=== PATIENT | female | born 1970 | race Caucasian/White ===

== ENCOUNTER → 2018-02-15 | Outpatient (CLI) | payer OTHER ==
[~2018-02-15] MED LIST: AMOX500 PO; B/P MED; CLON2 PO; DULO60 PO; FLUC150A PO; GLYB5 PO; HYDACE5 PO; HYDACE5325 PO; Humalog100 UNIT/1; INSLI100I SC; INSUASPI SC; INSUASPI SUBQ; INSULANI SC; INSULANI SQ; INSULANI SUBQ; INSULANPEN; LISI20 PO; LORA1 PO; MAGCIT300 PO; METF500 PO; ONDA4ODT MM; OXYACE5T PO; OXYC5 PO; POLY17UD PO; RXCLIN PO; RXTRAM50 PO; SULTRIDS PO; VITAMIN D
[2018-02-15 12:53] LABS: BASOPHILS ABSOLUTE AUTO 0.09 K/mm3 (0.00-0.23); BASOPHILS PERCENT AUTO 1 % (0-2); EOSINOPHILS ABSOLUTE AUTO 0.09 K/mm3 (0.00-0.68); EOSINOPHILS PERCENT AUTO 1 % (0-6); Hematocrit 34.7 % (33.0-51.0); Hemoglobin 11.1 g/dL (11.5-16.0); IMMATURE GRAN ABSOLUTE AUTO 0.01 K/mm3 (0.00-0.10); IMMATURE GRAN PERCENT AUTO 0 % (0-1); LYMPHOCYTES ABSOLUTE AUTO 2.25 K/mm3 (0.84-5.20); LYMPHOCYTES PERCENT AUTO 36 % (21-46); MONOCYTES ABSOLUTE AUTO 0.67 K/mm3 (0.16-1.47); MONOCYTES PERCENT AUTO 11 % (4-13); Mean Corpuscular Volume 75 fL (80-100); Mean Platelet Volume 8.8 fL (9.1-12.4); NEUTROPHILS ABSOLUTE AUTO 3.16 K/mm3 (1.96-9.15); NEUTROPHILS PERCENT AUTO 50 % (41-73); Platelet Count 390 K/mm3 (150-400); RDW Coefficient Variation 16.8 % (11.7-14.2); RDW Standard Deviation 45.2 fL (35.1-46.3); Red Blood Cell Count 4.63 M/mm3 (3.80-5.20); White Blood Cell Count 6.27 K/mm3 (4.00-11.30)
[2018-02-15 13:05] LABS: Anion Gap 4 mmol/L (6-16); Blood Urea Nitrogen 12 mg/dL (8-24); Bun/Creatinine Ratio 21.4 (12.0-20.0); CO2, Blood 39 mmol/L (21-32); Chloride, Blood 102 mmol/L (98-108); Creatinine, Blood 0.56 mg/dL (0.40-1.00); Glomerular Filtration Rate >60 (60-); Glucose, Blood 217 mg/dL (70-99); Potassium, Blood 3.1 mmol/L (3.5-5.5); Sodium, Blood 145 mmol/L (136-145)
[2018-02-15 13:07] LABS: Troponin I <0.017 ng/mL (0.000-0.040)
== END | disposition home or self-care (01) ==
LOC: LAB EV 12:49 → LAB SHORT 12:49
PROVIDERS: Family Medicine
DX: Z53.9 Procedure and treatment not carried out, unspecified reason (principal)
CPT/HCPCS: 80048; 84484; 85025

== ENCOUNTER → 2018-04-23 | Outpatient (CLI) | payer OTHER ==
[2018-04-23 19:37] LABS: BASOPHILS ABSOLUTE AUTO 0.11 K/mm3 (0.00-0.23); BASOPHILS PERCENT AUTO 2 % (0-2); EOSINOPHILS ABSOLUTE AUTO 0.15 K/mm3 (0.00-0.68); EOSINOPHILS PERCENT AUTO 3 % (0-6); Hematocrit 33.3 % (33.0-51.0); Hemoglobin 10.3 g/dL (11.5-16.0); IMMATURE GRAN ABSOLUTE AUTO 0.01 K/mm3 (0.00-0.10); IMMATURE GRAN PERCENT AUTO 0 % (0-1); LYMPHOCYTES ABSOLUTE AUTO 2.17 K/mm3 (0.84-5.20); LYMPHOCYTES PERCENT AUTO 38 % (21-46); MONOCYTES PERCENT AUTO 11 % (4-13); Mean Corpuscular HGB Conc 30.9 g/dL (31.5-36.5); Mean Corpuscular Volume 75 fL (80-100); Mean Platelet Volume 9.5 fL (9.1-12.4); NEUTROPHILS ABSOLUTE AUTO 2.68 K/mm3 (1.96-9.15); NEUTROPHILS PERCENT AUTO 47 % (41-73); Platelet Count 394 K/mm3 (150-400); RDW Coefficient Variation 17.9 % (11.7-14.2); RDW Standard Deviation 47.7 fL (35.1-46.3); Red Blood Cell Count 4.47 M/mm3 (3.80-5.20); White Blood Cell Count 5.72 K/mm3 (4.00-11.30)
[2018-04-23 19:55] LABS: Alanine Aminotransfer (ALT/SGP 21 U/L (12-78); Albumin, Blood 3.2 g/dL (3.4-5.0); Alk Phos 86 U/L (40-126); Anion Gap 6 mmol/L (6-16); Aspartate Aminotrans (AST/SGOT 16 U/L (12-37); Bilirubin, Total 0.3 mg/dL (0.1-1.0); Blood Urea Nitrogen 15 mg/dL (8-24); Bun/Creatinine Ratio 21.4 (12.0-20.0); CO2, Blood 26 mmol/L (21-32); Calcium, Blood 8.5 mg/dL (8.5-10.1); Chloride, Blood 103 mmol/L (98-108); Globulin, Blood 3.1 g/dL (2.2-4.0); Glomerular Filtration Rate >60 (60-); Glucose, Blood 413 mg/dL (70-99); Potassium, Blood 3.8 mmol/L (3.5-5.5); Sodium, Blood 135 mmol/L (136-145); Thyroid Stimulating Hormone 1.057 uIU/mL (0.360-4.800); Total Protein, Blood 6.3 g/dL (6.4-8.2)
== END | disposition home or self-care (01) ==
LOC: LAB EV 19:30 → LAB SHORT 19:30
PROVIDERS: Physician Assistant Medical
DX: R10.84 Generalized abdominal pain (principal); R53.83 Other fatigue; R60.9 Edema, unspecified; E10.9 Type 1 diabetes mellitus without complications
CPT/HCPCS: 80053; 83036; 83880; 84443; 85025

== ENCOUNTER 2018-10-10 00:54 | Emergency (ER) | payer OTHER ==
[~2018-10-10] VITALS: Ht 175.3 cm; Wt 78.9 kg
[2018-10-10] MEDS ORDERED: Humalog100 UNIT/3 SC (02:24)
[2018-10-10 02:25] LABS: Calcium, Ionized (POC) 1.15 mmol/L (1.10-1.46); Chloride (POC) 100 mmol/L (98-108); Creatinine (POC) 0.5 mg/dL (0.6-1.0); Glucose (ISTAT POC) 336 mg/dL (70-99); Hemoglobin (POC) 11.2 g/dL (12.0-16.0); Sodium (POC) 135 mmol/L (135-148); Total CO2 (POC) 26 mmol/L (21-32)
== END 2018-10-10 02:30 | disposition home or self-care (01) ==
LOC: ER 00:54
PROVIDERS: Emergency Medicine
DX: E11.65 Type 2 diabetes mellitus with hyperglycemia (principal); F17.200 Nicotine dependence, unspecified, uncomplicated; Z79.4 Long term (current) use of insulin
CPT/HCPCS: 80047; 85014; 99283

== ENCOUNTER 2018-12-06 07:51 | Day surgery (SDC) | payer OTHER ==
[~2018-12-06] VITALS: Ht 172.7 cm; Wt 80.2 kg
[~2018-12-06 07:51] MED LIST changes: +ASPI81CH PO; +BASAGLAR K100 UNIT/1 SC; +Humalog100 UNIT/3 SC; +LISI5 PO
--- NOTE | 2018-12-06 09:20 | NUR ---
12/06/18 0920 Ahmet Baum PATIENT DETERMINED TO BE ASA APPROPRIATE FOR PROPOFOL SEDATION PRIOR TO START OF PROCEDURE BY . 3-LEAD EKG REVIEWED WITH PHYSICIAN PRIOR TO START OF PROCEDURE.PATIENT CONFIRMS NPO STATUS AND AGREES WITH SCHEDULED PROCEDURE.History, Chart, Medications and Allergies reviewed before start of procedure.MONITOR INTACT WITH CONTINUOUS PULSE OXIMETRY AND INTERMITTENT BP.O2 VIA N/C INTACT THROUGHOUT SEDATION/PROCEDURE.
--- NOTE | 2018-12-06 10:11 | NUR ---
"DAY SURGERY RN | DISCHARGE Patient steady on feet. VSS. A/O. No issues in stepdown. Tolerating PO fluids. Patient taken to car ( is driving home), via wheel chair by volunteer. All belonings returned to patient and discharge instructions given, no questions."
== END 2018-12-06 12:00 | disposition home or self-care (01) ==
LOC: ORSCMMR 07:51
PROVIDERS: Internal Medicine Gastroenterology
PROC: 0DBM8ZX Excision of Descending Colon, Via Natural or Artificial Opening Endoscopic, Diagnostic (ICD-10-PCS; principal; 2018-12-06 09:00)
DX: Z12.11 Encounter for screening for malignant neoplasm of colon (principal); Z80.0 Family history of malignant neoplasm of digestive organs; K63.5 Polyp of colon; E10.9 Type 1 diabetes mellitus without complications; Z79.4 Long term (current) use of insulin; Z79.899 Other long term (current) drug therapy; Z79.82 Long term (current) use of aspirin; F17.210 Nicotine dependence, cigarettes, uncomplicated
CPT/HCPCS: 82947; 84703; 88305; J7120

== ENCOUNTER → 2019-01-16 | Outpatient (CLI) | payer OTHER ==
[2019-01-16 17:56] LABS: Alanine Aminotransfer (ALT/SGP 22 U/L (12-78); Albumin, Blood 3.4 g/dL (3.4-5.0); Alk Phos 97 U/L (40-126); Anion Gap 7 mmol/L (6-16); Aspartate Aminotrans (AST/SGOT 20 U/L (12-37); Bilirubin, Total 0.2 mg/dL (0.1-1.0); Blood Urea Nitrogen 9 mg/dL (8-24); Bun/Creatinine Ratio 14.3 (12.0-20.0); CO2, Blood 26 mmol/L (21-32); Calcium, Blood 8.2 mg/dL (8.5-10.1); Chloride, Blood 100 mmol/L (98-108); Creatinine, Blood 0.63 mg/dL (0.40-1.00); Globulin, Blood 3.4 g/dL (2.2-4.0); Glomerular Filtration Rate >60 (60-); Glucose, Blood 344 mg/dL (70-99); Potassium, Blood 4.6 mmol/L (3.5-5.5); Sodium, Blood 133 mmol/L (136-145); Total Protein, Blood 6.8 g/dL (6.4-8.2)
== END | disposition home or self-care (01) ==
LOC: LAB EV 17:41 → LAB SHORT 17:41
PROVIDERS: Physician Assistant
DX: E10.9 Type 1 diabetes mellitus without complications (principal)
CPT/HCPCS: 80053

== ENCOUNTER 2019-01-24 19:36 | Emergency (ER) | payer OTHER | END 2019-01-24 21:00 | disposition left against medical advice (07) | LOC: ER 19:36 | DX: Z53.21 Procedure and treatment not carried out due to patient leaving prior to being seen by health care provider (principal) ==

== ENCOUNTER 2019-07-05 06:32 | Day surgery (SDC) | payer OTHER ==
[~2019-07-05] VITALS: Ht 172.7 cm; Wt 78.8 kg
[~2019-07-05 06:32] MED LIST changes: +ADMELOG SO100 UNIT/1; +ADMELOG100 UNIT/1; +ADRENALIN1 MG/1 M1; +ALBU2.5V5; +CYCL10; +FLUC150A; +Mobic15 MG; +Nortriptyline H25 MG
--- NOTE | 2019-07-05 07:48 | NUR ---
07/05/19 0748 Shannon Barry TWO IV UNSUCCESSFUL IV ATTEMPTS BY HORACE MICHELLE. 1 UNSUCCESSFUL AND 1 SUCCESSFUL ATTEMPT BY VIVIANA RAYMOND. SUCCESSFUL IV PLACED IN LFA. RUNNING WELL. PT TOLERATED, BUT WAS ANXIOUS AND TEARFUL THROUGHOUT PROCEDURE. COMFORTED AND ADVISED AND DEMONSTRATED DEEP BREATHING TECHNIQUE.
--- NOTE | 2019-07-05 09:19 | NUR ---
07/05/19 0919 Alecia Moreno V UPON ARRIVING TO SDU, PT REQUESTED TO USE RESTROOM. PT STATED SHE WAS UNABLE TO VOID OR HAVE A BM DESPITE FEELING THE URGE TO DO BOTH. PT MOVED TO RECLINER AND GIVEN PAIN AND NAUSEA MEDS PER ORDERS. PT VERY VERBAL IN STATING "OUCH, I HURT SO BAD. I WANT MY MOMMY. I JUST WANT THIS ALL TO STOP. I DONT WANT TO HURT LIKE THIS ANY MORE." AFTER RECIEVING PAIN MEDS, PT CALMED DOWN AND APPEARS TO BE RESTING WITH EYES CLOSED. VSS.
== END 2019-07-05 10:10 | disposition home or self-care (01) ==
LOC: ORSCSDS 06:32
PROVIDERS: Obstetrics & Gynecology
PROC: 0U5F4ZZ Destruction of Cul-de-sac, Percutaneous Endoscopic Approach (ICD-10-PCS; principal; 2019-07-05 07:30)
DX: N92.0 Excessive and frequent menstruation with regular cycle (principal); N80.3 Endometriosis of pelvic peritoneum; N94.6 Dysmenorrhea, unspecified; N94.10 Unspecified dyspareunia; R10.2 Pelvic and perineal pain; I10 Essential (primary) hypertension; E10.42 Type 1 diabetes mellitus with diabetic polyneuropathy; Z79.84 Long term (current) use of oral hypoglycemic drugs; Z79.899 Other long term (current) drug therapy
CPT/HCPCS: 82947; J0171; J0690; J2250; J2405; J2704; J2765; J3010; J7120

== ENCOUNTER → 2019-09-11 | Outpatient (CLI) | payer OTHER | END | disposition home or self-care (01) | LOC: PLD 08:02 → LAB SHORT 08:02 | DX: D36.17 Benign neoplasm of peripheral nerves and autonomic nervous system of trunk, unspecified (principal) | CPT/HCPCS: 88305 ==

== ENCOUNTER → 2019-09-13 | Outpatient (CLI) | payer OTHER | END | disposition home or self-care (01) | LOC: LAB SHORT 07:55 → PLD 07:55 | DX: B35.1 Tinea unguium (principal); L60.2 Onychogryphosis; R23.4 Changes in skin texture | CPT/HCPCS: 88305; 88312 ==

== ENCOUNTER 2020-07-23 12:10 | Day surgery (SDC) | payer OTHER ==
[2020-07-22 17:51] LABS: BASOPHILS PERCENT AUTO 1 % (0-2); EOSINOPHILS PERCENT AUTO 3 % (0-6); Hematocrit 42.1 % (33.0-51.0); IMMATURE GRAN ABSOLUTE AUTO 0.01 K/mm3 (0.00-0.10); IMMATURE GRAN PERCENT AUTO 0 % (0-1); LYMPHOCYTES ABSOLUTE AUTO 2.67 K/mm3 (0.84-5.20); LYMPHOCYTES PERCENT AUTO 37 % (21-46); MONOCYTES ABSOLUTE AUTO 0.69 K/mm3 (0.16-1.47); MONOCYTES PERCENT AUTO 10 % (4-13); Mean Corpuscular HGB 25.4 pg (26.0-34.0); Mean Corpuscular HGB Conc 30.9 g/dL (31.5-36.5); Mean Corpuscular Volume 82 fL (80-100); Mean Platelet Volume 9.2 fL (9.1-12.4); NEUTROPHILS ABSOLUTE AUTO 3.46 K/mm3 (1.96-9.15); NEUTROPHILS PERCENT AUTO 49 % (41-73); Platelet Count 501 K/mm3 (150-400); RDW Coefficient Variation 15.3 % (11.7-14.2); RDW Standard Deviation 46.1 fL (35.1-46.3); Red Blood Cell Count 5.11 M/mm3 (3.80-5.20); White Blood Cell Count 7.13 K/mm3 (4.00-11.30)
[2020-07-22 18:38] LABS: Anion Gap 8 mmol/L (6-16); Beta HCG, Quantitative, Serum 2 mIU/mL (0-3); Blood Urea Nitrogen 12 mg/dL (8-24); Bun/Creatinine Ratio 18.2 (12.0-20.0); CO2, Blood 27 mmol/L (21-32); Calcium, Blood 9.5 mg/dL (8.5-10.1); Chloride, Blood 103 mmol/L (98-108); Creatinine, Blood 0.66 mg/dL (0.40-1.00); Glomerular Filtration Rate >60 (60-); Glucose, Blood 284 mg/dL (70-99); Sodium, Blood 138 mmol/L (136-145)
[~2020-07-23] VITALS: Ht 175.3 cm; Wt 82.8 kg
[~2020-07-23 12:10] MED LIST changes: +ADMELOG100 UNIT/2; +ALBU8HFA2 INH; +AMIT10 PO; +BASAGLAR K100 UNIT/2 SC; +BASAGLAR K100 UNIT/5 SC; +CYCL10 PO; +DULO30 PO; +HYDHCL25 PO; +IRON PO; +Klonopin0.5 MG PO; +Lisinopril-Hct1 EAC4 PO; +MELO7.5 PO; +Nortriptyline H50 MG PO; +Percocet 7.5-31 EACH PO; +VITAMIN D310 MC4 PO
--- NOTE | 2020-07-23 18:21 | NUR ---
pt transferred to unit approx 1745, awake and alert, slurring speech slightly, denies nausea, rates pain at 8/10. post op vs commenced and stable. pt's SO in room, PAS in place. laparascopic sites x 4 c/d/i, ezekiel pad with small amount wilder blood
[2020-07-24 04:25] LABS: BASOPHILS ABSOLUTE AUTO 0.02 K/mm3 (0.00-0.23); BASOPHILS PERCENT AUTO 0 % (0-2); EOSINOPHILS ABSOLUTE AUTO 0.18 K/mm3 (0.00-0.68); EOSINOPHILS PERCENT AUTO 1 % (0-6); Hematocrit 33.9 % (33.0-51.0); Hemoglobin 10.9 g/dL (11.5-16.0); IMMATURE GRAN ABSOLUTE AUTO 0.05 K/mm3 (0.00-0.10); IMMATURE GRAN PERCENT AUTO 0 % (0-1); LYMPHOCYTES ABSOLUTE AUTO 0.63 K/mm3 (0.84-5.20); LYMPHOCYTES PERCENT AUTO 5 % (21-46); MONOCYTES PERCENT AUTO 5 % (4-13); Mean Corpuscular HGB 26.4 pg (26.0-34.0); Mean Corpuscular HGB Conc 32.2 g/dL (31.5-36.5); Mean Corpuscular Volume 82 fL (80-100); Mean Platelet Volume 9.7 fL (9.1-12.4); NEUTROPHILS ABSOLUTE AUTO 11.36 K/mm3 (1.96-9.15); NEUTROPHILS PERCENT AUTO 88 % (41-73); Platelet Count 428 K/mm3 (150-400); RDW Coefficient Variation 15.6 % (11.7-14.2); Red Blood Cell Count 4.13 M/mm3 (3.80-5.20); White Blood Cell Count 12.94 K/mm3 (4.00-11.30)
--- NOTE | 2020-07-24 06:31 | NUR ---
SHIFT SUMMARY: TRAVIS IS A&OX4. VSS, NO ACUTE EVENTS OVERNIGHT. CATHETER DISCONTINUED THIS AM. SHE AMBULATED TO THE BATHROOM AND WAS ABLE TO URINATE. SMALL AMNT SS DISCHARGE, MARILYN PAD PROVIDED. SHE REPORTS TOLERABLE PAIN CONTROL WITH THE PERCOCET. SHE IS TOLERATING PO INTAKE WELL. IV ABX INFUSING. SHE USES HER CALL LIGHT APPROPRIATELY. LAP SITES INTACT, ONE SITE WITH SCANT AMT SS DRAINAGE. TEGADERM INTACT. SHE IS LYING IN BED WITH HER CALL LIGHT IN REACH. WILL REPORT TO DAY SHIFT RN.
--- NOTE | 2020-07-24 07:20 | NUR ---
PT AWAKE LAYING IN BED STATED SHE HAS A LEG CRAMP RUBBING HER LEG DENIES N/V NO FLATUS HAS VOIDED X1 SMALL AMT OF VAG BLEEDING PT HAS ONE OF HER GAUZE DRESSING TO ABD WITH LIGHT PINK SERO/SANG DRAINAGE THE REST C/D/I WILL MED FOR PAIN AT 0800 NEXT DOSE DUE
--- NOTE | 2020-07-24 10:58 | NUR ---
pt reporting nausea no emesis still no flatus enc amb in hallway po phenergan given
--- NOTE | 2020-07-24 13:09 | NUR ---
wondera[place]in by to see pt
--- NOTE | 2020-07-24 14:30 | NUR ---
DISCHARGE INSTRUCTIONS REVIEWED WITH PT VERBALIZED RX GIVEN PT WAITING FOR HER RIDE
[2020-07-24] MEDS ORDERED: OXYACE7.5T PO (14:40)
[2020-07-24] MEDS ORDERED: IBUP800 PO (14:42)
[2020-07-24] MEDS ORDERED: PROM25 PO (14:43)
[2020-07-24] MEDS ORDERED: ESTRADIOL2 MG PO (14:44)
--- NOTE | 2020-07-24 15:20 | NUR ---
WC ESCORT TO CAR NO ACUTE CHANGES
== END 2020-07-24 15:20 | disposition home or self-care (01) ==
LOC: ORSCMMR 12:10 → ORD 13:15 → ORSCMMR 13:15 → SURS 17:12 → ORSCMMR 07-24 15:20 → SURS 07-24 15:20
PROVIDERS: Obstetrics & Gynecology
PROC: 0UT74ZZ Resection of Bilateral Fallopian Tubes, Percutaneous Endoscopic Approach (ICD-10-PCS; principal; 2020-07-23 13:15)
PROC: 8E0W4CZ Robotic Assisted Procedure of Trunk Region, Percutaneous Endoscopic Approach (ICD-10-PCS; principal; 2020-07-23 13:15)
PROC: 0UT24ZZ Resection of Bilateral Ovaries, Percutaneous Endoscopic Approach (ICD-10-PCS; principal; 2020-07-23 13:15)
PROC: 0UT94ZZ Resection of Uterus, Percutaneous Endoscopic Approach (ICD-10-PCS; principal; 2020-07-23 13:15)
DX: N92.0 Excessive and frequent menstruation with regular cycle (principal); N94.10 Unspecified dyspareunia; N94.6 Dysmenorrhea, unspecified; N80.0 Endometriosis of uterus; N83.292 Other ovarian cyst, left side; N83.291 Other ovarian cyst, right side; K66.0 Peritoneal adhesions (postprocedural) (postinfection); I10 Essential (primary) hypertension; Z87.891 Personal history of nicotine dependence; E10.8 Type 1 diabetes mellitus with unspecified complications; G40.909 Epilepsy, unspecified, not intractable, without status epilepticus; Z79.4 Long term (current) use of insulin; Z79.899 Other long term (current) drug therapy
CPT/HCPCS: 58573; S2900; 36415; 80048; 82947; 84702; 85025; 86850; 86900; 86901; 88307; 94760; A9270-GY; J0690; J1100; J1885; J2250; J2405; J2550; J2704; J2765; J3010; J7120

== ENCOUNTER 2020-11-09 17:36 | Emergency (ER) | payer OTHER ==
[~2020-11-09] VITALS: Ht 172.7 cm; Wt 81.7 kg
[~2020-11-09 17:36] MED LIST changes: +ESTRADIOL2 MG PO; +IBUP800 PO; +OXYACE7.5T PO; +PROM25 PO
[2020-11-09] MEDS ORDERED: Norco 5-325 Ta1 EACH PO (19:58)
== END 2020-11-09 20:23 | disposition home or self-care (01) ==
LOC: ER 17:36
DX: S39.012A Strain of muscle, fascia and tendon of lower back, initial encounter (principal); M25.552 Pain in left hip; Z79.4 Long term (current) use of insulin; Z79.899 Other long term (current) drug therapy; Z87.891 Personal history of nicotine dependence; Z91.030 Bee allergy status; Z91.09 Other allergy status, other than to drugs and biological substances; V03.90XA Pedestrian on foot injured in collision with car, pick-up truck or van, unspecified whether traffic or nontraffic accident, initial encounter; Y92.009 Unspecified place in unspecified non-institutional (private) residence as the place of occurrence of the external cause
CPT/HCPCS: 72100; 73502; 96372; 99283-25; A9270; J1885

== ENCOUNTER 2024-05-30 13:54 | Day surgery (SDC) | payer OTHER ==
[~2024-05-30] VITALS: Ht 172.7 cm; Wt 83.7 kg
[~2024-05-30 13:54] MED LIST changes: +Atropine Sulfate 0.1 MG/ML 10ML SYR ONE; +Glycopyrrolate 0.2 MG/ML 1MLVIAL ONE; +Lactated Ringer's 1,000 ML IV ONE; +Lidocaine 2% 5 ML SDV ONE; +Lidocaine HCl/Pf 1% 5 ML VIAL ONE; +Methylene Blue 1% 100 MG/10 ML VIAL ONE; +Norco 5-325 Ta1 EACH PO; +Ondansetron HCl 2 MG / ML 2ML Vial ONE; +ePHEDrine Sulfate 50 MG/ML 1ML Injection ONE; +propofoL 0 ML IV ONE
[2024-05-30] MEDS ORDERED: MAGNESIUM OXID500 MG (14:09)
[2024-05-30] MEDS ORDERED: Lisinopril-Hct1 EAC4 (14:09)
[2024-05-30] MEDS ORDERED: Vitamin B-12100 MCG (14:13)
[2024-05-30] MEDS ORDERED: ERGO400 (14:13)
[2024-05-30] MEDS ORDERED: Fruit C-100100 MG (14:13)
[2024-05-30] MEDS ORDERED: Alendronate Sodi5 MG (14:13)
[2024-05-30] MEDS ORDERED: Diflucan150 MG (14:14)
[2024-05-30] MEDS ORDERED: POTASSIUM GLU2.5 MEQ (14:14)
[2024-05-30] MEDS ORDERED: ONDA4ODT (14:14)
[2024-05-30] MEDS ORDERED: Lactated Ringer's 1,000 ML IV ONE (14:44)
[2024-05-30 16:54] VITALS: BP 113/75
== END 2024-05-30 16:40 | disposition home or self-care (01) ==
LOC: ORSCSDS 13:54
PROVIDERS: Surgery
PROC: 0DBH8ZX Excision of Cecum, Via Natural or Artificial Opening Endoscopic, Diagnostic (ICD-10-PCS; principal; 2024-05-30 15:00)
DX: K59.09 Other constipation (principal); D12.0 Benign neoplasm of cecum; K64.8 Other hemorrhoids; I10 Essential (primary) hypertension; E10.8 Type 1 diabetes mellitus with unspecified complications; F32.A Depression, unspecified; F41.9 Anxiety disorder, unspecified; Z79.4 Long term (current) use of insulin; Z79.899 Other long term (current) drug therapy
CPT/HCPCS: 82947; 88305; J0461; J2001; J2405; J2704; J7120; Q9968

== ENCOUNTER → 2024-07-22 | Outpatient (CLI) | payer OTHER ==
[~2024-07-22] MED LIST changes: +Alendronate Sodi5 MG; -Atropine Sulfate 0.1 MG/ML 10ML SYR ONE; +Diflucan150 MG; +ERGO400; +Fruit C-100100 MG; -Glycopyrrolate 0.2 MG/ML 1MLVIAL ONE; -Lactated Ringer's 1,000 ML IV ONE; -Lidocaine 2% 5 ML SDV ONE; -Lidocaine HCl/Pf 1% 5 ML VIAL ONE; +Lisinopril-Hct1 EAC4; +MAGNESIUM OXID500 MG; -Methylene Blue 1% 100 MG/10 ML VIAL ONE; +ONDA4ODT; -Ondansetron HCl 2 MG / ML 2ML Vial ONE; +POTASSIUM GLU2.5 MEQ; +Vitamin B-12100 MCG; -ePHEDrine Sulfate 50 MG/ML 1ML Injection ONE; -propofoL 0 ML IV ONE
== END ==
LOC: LAB 19:25 → LAB SHORT 19:25
DX: L02.212 Cutaneous abscess of back [any part, except buttock and flank] (principal)
CPT/HCPCS: 87070; 87075; 87205